=== PATIENT | female | born 1950 | race Caucasian/White ===

== ENCOUNTER 2016-12-16 10:41 | Emergency (ER) | payer MEDICARE, BC ==
[2016-12-16 10:58] VITALS: BP 105/76
[2016-12-16] MEDS ORDERED: Ketorolac 30 MG/ML SDV IM ONE (11:02)
--- NOTE | 2016-12-16 11:09 | EDM.PDOC ---
ED HPI GENERAL MEDICAL PROBLEM - General Chief Complaint: Lower Extremity Injury/Pain Stated Complaint: LEFT KNEE Time Seen by Provider: 12/16/16 11:03 Source of Information: Reports: Patient History Limitations: Reports: No Limitations - History of Present Illness INITIAL COMMENTS - FREE TEXT/NARRATIVE: 66 yo female presents with c/o left knee pain after being hit by a dog. states that when the collision happened she heard a pop. Swelling noted to knee. c/o left ankle pain. Unable to fully bear weight to left lower extremity Onset Date: 12/15/16 Duration: Getting Worse Location: Reports: Lower Extremity, Left Quality: Reports: Ache, Throbbing Severity: Moderate Improves with: Reports: None Worsens with: Reports: Movement Context: Reports: Activity Associated Symptoms: Reports: No Other Symptoms Left Knee Pain Score (Numeric/FACES): 6 - Related Data Allergies Allergy/AdvReac Type Severity Reaction Status Date / Time strawberry Allergy Rash Verified 12/16/16 10:53 tomato Allergy Rash Verified 12/16/16 10:53 peppers Allergy Rash Uncoded 12/16/16 10:53 Home Meds: Home Meds Glimepiride [Amaryl] 2 mg PO DAILY 12/16/16 [History] Lisinopril 5 mg PO DAILY 12/16/16 [History] metFORMIN [Glucophage] 500 mg PO QID 12/16/16 [History] Past Medical History Cardiovascular History: Reports: Hypertension Respiratory History: Reports: Bronchitis, Recurrent 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 Social & Family History - Family History Family Medical History: Noncontributory - Tobacco Use Smoking Status *Q: Current Every Day Smoker Years of Tobacco use: 40 Packs/Tins Daily: 1 - Caffeine Use Caffeine Use: Reports: Coffee, Soda - Recreational Drug Use Recreational Drug Use: No Review of Systems - Review of Systems Review Of Systems: ROS reveals no pertinent complaints other than HPI. ED EXAM, GENERAL - Physical Exam Exam: See Below Exam Limited By: No Limitations General Appearance: Alert, WD/WN, No Apparent Distress Respiratory/Chest: No Respiratory Distress, Lungs Clear, Normal Breath Sounds, No Accessory Muscle Use, Chest Non-Tender Cardiovascular: Normal Peripheral Pulses, Regular Rate, Rhythm, No Edema, No Gallop, No JVD, No Murmur, No Rub Extremities: Normal Capillary Refill, Joint Swelling (left knee), Leg Pain ( with palpation to medial and lateral knee, mild pain to left lateral ankle), Limited Range of Motion (due to pain) Neurological: Alert, Oriented, Normal Cognition, Normal Gait Skin Exam: Warm, Dry, Intact, Normal Color, No Rash Course - Vital Signs Last Recorded V/S: Last Vital Signs Temp 97.8 F 12/16/16 10:55 Pulse 84 12/16/16 10:55 Resp 20 12/16/16 10:55 BP 105/76 12/16/16 10:55 Pulse Ox 99 12/16/16 10:55 - Orders/Labs/Meds Orders: Active Orders 24 hr Category Date Time Status Immobilizer [RC] ASDIRECTED Care 12/16/16 12:13 Ordered Meds: Medications Discontinued Medications Generic Name Dose Route Start Last Admin Trade Name Sasha PRN Reason Stop Dose Admin Ketorolac Tromethamine 30 mg 12/16/16 11:02 12/16/16 11:07 Toradol IM 12/16/16 11:03 30 mg ONETIME ONE Administration - Radiology Interpretation Free Text/Narrative:: Mild effusion Left knee. - Re-Assessments/Exams Free Text/Narrative Re-Assessment/Exam: 12/16/16 12:[address] in knee immobilizer Naproxen #20 Departure - Departure Time of Disposition: 12:15 Disposition: Home, Self-Care 01 Condition: Good Clinical Impression: Sprain of knee, Contusion of knee - Discharge Information Instructions: Knee Sprain, [id number], Knee Immobilizer, [id number], Crutch Use, [id number] Forms: ED Department Discharge Additional Instructions: Rest, use knee immobilizer as directed. Use crutches if needed. Take pain medication as directed. Follow up with your PCP for an Orthopedic referral for possible torn ligament if not improving - My Orders Last 24 Hours: My Active Orders 12/16/16 12:13 Immobilizer [RC] ASDIRECTED - Assessment/Plan Last 24 Hours: My Active Orders 12/16/16 12:13 Immobilizer [RC] ASDIRECTED
== END 2016-12-16 12:37 | disposition home or self-care (01) ==
LOC: DL.ED 10:41
DX: S83.92XA Sprain of unspecified site of left knee, initial encounter (principal); S80.02XA Contusion of left knee, initial encounter; I10 Essential (primary) hypertension; E11.9 Type 2 diabetes mellitus without complications; F17.210 Nicotine dependence, cigarettes, uncomplicated; Z90.710 Acquired absence of both cervix and uterus; Z98.890 Other specified postprocedural states; Z79.84 Long term (current) use of oral hypoglycemic drugs; Z79.899 Other long term (current) drug therapy; Z91.018 Allergy to other foods; W54.1XXA Struck by dog, initial encounter
CPT/HCPCS: 73562; 73610; 99283; J1885